=== PATIENT | male | born 1975 | race Caucasian/White ===

== ENCOUNTER 2017-03-14 09:05 | Emergency (ER) | payer OTHER ==
[~2017-03-14] VITALS: Ht 172.7 cm; Wt 71.2 kg
[~2017-03-14 09:05] MED LIST: COREG PO; EPIPEN0.3 MG/0.1 IM; MEDROL PO; NO MEDICATIONS; SUBOXONE 8 MG-1 EAC1 SL
[2017-03-14] MEDS ORDERED: KLONOPIN1 MG PO (09:15)
[2017-03-14] MEDS ORDERED: LISINOPRIL5 MG PO (09:16)
[2017-03-14] MEDS ORDERED: COREG12.5 MG PO (09:16)
== END 2017-03-14 12:32 | disposition left against medical advice (07) ==
LOC: CED 09:05
DX: R06.00 Dyspnea, unspecified (principal); F41.9 Anxiety disorder, unspecified; F17.200 Nicotine dependence, unspecified, uncomplicated; Z88.0 Allergy status to penicillin
CPT/HCPCS: 99283